=== PATIENT | female | born 1970 | race Native Hawaiian/Other Pacific Islander ===

== ENCOUNTER 2018-02-27 04:49 | Outpatient (CLI) | payer OTHER | END 2018-02-27 04:59 | disposition short-term general hospital (02) | LOC: AMB 04:49 | DX: R10.84 Generalized abdominal pain (principal); R11.10 Vomiting, unspecified | CPT/HCPCS: A0425; A0427 ==

== ENCOUNTER 2018-02-28 05:09 | Emergency (ER) | payer OTHER ==
[~2018-02-28] VITALS: Ht 167.6 cm; Wt 127.9 kg
[2018-02-28 06:09] LABS: POTASSIUM 4.5 mmol/L (3.6-5.2)
[2018-02-28 06:38] LABS: PLATELET COUNT 287 K/uL (152-353)
== END 2018-02-28 07:50 | disposition home or self-care (01) ==
LOC: ED 05:09
PROVIDERS: Emergency Medicine
DX: K21.9 Gastro-esophageal reflux disease without esophagitis (principal); R10.13 Epigastric pain; R00.1 Bradycardia, unspecified
CPT/HCPCS: 36415; 80053; 81025; 82150; 82550; 83690; 84443; 84484; 85027; 93005; 96374; 99284; J2270